=== PATIENT | female | born 1985 | race Caucasian/White ===

== ENCOUNTER 2023-03-21 16:59 | Emergency (ER) | payer OTHER ==
[2023-03-21 17:11] VITALS: BP 124/76; PULSE 66; RESP 18; TEMP 97.8; BMI 40.2
== END 2023-03-21 19:01 | disposition home or self-care (01) ==
LOC: FER 16:59
DX: M79.661 Pain in right lower leg (principal); R25.2 Cramp and spasm
CPT/HCPCS: 93971-TC; 99284-25